=== PATIENT | male | born 1985 ===

== ENCOUNTER 2017-02-12 20:54 | Emergency (ER) | payer MEDICAID ==
--- NOTE | 2017-02-12 23:52 | C.PDOC ---
History Of Present Illness 31 y/o male c/o pain to the left knee after a mechanical fall over 2 steps [employer]. Patient reports a prior injury to two weeks prior to the same knee. Denies weakness, numbness, or any other complaints. Time Seen by Provider: 02/12/17 22:54 Chief Complaint (Nursing): Lower Extremity Problem/Injury History Per: Patient History/Exam Limitations: no limitations Onset/Duration Of Symptoms: Hrs Current Symptoms Are (Timing): Still Present Severity: Mild Recent travel outside of the [place]: No Additional History Per: Patient Past Medical History Reviewed: Historical Data, Nursing Documentation, Vital Signs Vital Signs: Last Vital Signs Temp 97.8 F 02/13/17 00:01 Pulse 88 02/13/17 00:01 Resp 17 02/13/17 00:01 BP 134/77 02/13/17 00:01 Pulse Ox 96 02/13/17 00:01 Surgical History: Appendectomy Family History: States: Unknown Family Hx - Social History Hx Alcohol Use: No Hx Substance Use: No - Immunization History Hx Influenza Vaccination: No Hx Pneumococcal Vaccination: No Review Of Systems Musculoskeletal: Positive for: Leg Pain (Left knee) Neurological: Negative for: Weakness, Numbness Physical Exam - Physical Exam Appears: Non-toxic, No Acute Distress Skin: Warm, Dry Head: Atraumatic, Normacephalic Extremity: Normal ROM, Tenderness (Minimal tenderness to the anterior aspect of the left knee.), Capillary Refill (<2secs), No Deformity, No Swelling, No Other (No erythema) Extremity: Bilateral: Normal Color And Temperature Pulses: Left Dorsalis Pedis: Normal, Right Dorsalis Pedis: Normal Neurological/Psych: Oriented x3, Normal Motor, Normal Sensation Gait: Steady ED Course And Treatment O2 Sat by Pulse Oximetry: 98 (RA) Pulse Ox Interpretation: Normal Progress Note: Plans: XRAY left knee, Motrin. XRAY left knee shows no acute fractures or dislocations. Patient placed in knee brace and advised to follow up with PMD and to return if symptoms persists. Disposition Counseled Patient/Family Regarding: Diagnosis, Need For Followup, Rx Given - Disposition Referrals: Sudhir Mac MD [Staff Provider] - Disposition: HOME/ ROUTINE Disposition Time: 23:49 Condition: STABLE Additional Instructions: Take meds as prescribed Follow up with PMD Return to ER if worse Prescriptions: Ibuprofen [Motrin] 600 mg PO Q6H #30 tab Instructions: Knee Sprain (ED) Forms: [facility] ([place]i) - Clinical Impression Clinical Impression: Left knee sprain - Scribe Statement The provider has reviewed the documentation as recorded by the Scribe Ken benedict All medical record entries made by the Scribe were at my direction and personally dictated by me. I have reviewed the chart and agree that the record accurately reflects my personal performance of the history, physical exam, medical decision making, and the department course for this patient. I have also personally directed, reviewed, and agree with the discharge instructions and disposition.
[2017-02-13 00:02] VITALS: BP 134/77; PULSE 88; RESP 17; TEMP 97.8
[2017-02-13 03:47] VITALS: O2SAT 98
--- NOTE | 2017-02-13 10:36 | RAD ---
PROCEDURE: Left Knee Radiographs. HISTORY: COMPARISON: None available FINDINGS: BONES: No acute displaced fracture. Small suprapatellar enthesophyte. JOINTS: No dislocation. Medial compartment joint space narrowing. JOINT EFFUSION: No significant joint effusion. OTHER FINDINGS: None. IMPRESSION: No acute displaced fracture, dislocation, or significant joint effusion identified. If symptoms persist, or if there is continued clinical concern, x-ray follow-up in 7-10 days should be considered. Degenerative changes including medial compartment joint space narrowing.
== END 2017-02-13 00:01 | disposition home or self-care (01) ==
LOC: C.ER 20:54
DX: S83.92XA Sprain of unspecified site of left knee, initial encounter (principal); W10.9XXA Fall (on) (from) unspecified stairs and steps, initial encounter